=== PATIENT | male | born 1990 | race Caucasian/White ===

== ENCOUNTER 2017-08-30 19:08 | Emergency (ER) | payer OTHER ==
[~2017-08-30] VITALS: Ht 170.2 cm; Wt 97.5 kg
[2017-08-30 19:23] VITALS: BP_SYST 159
[2017-08-30] MEDS ORDERED: LIDOCAINE 1% 10 MG/ML, 20 ML MDV INJ ONE (20:00)
[2017-08-30] MEDS ORDERED: BACITRACIN 1 GM OINT TP ONE (20:00)
[2017-08-30] MEDS ORDERED: DIPH-TET-PERTUS Vaccine 0.5 ML VIAL (ADACEL) I.M. ONE (20:00)
[2017-08-30 20:56] VITALS: BP_SYST 155
== END 2017-08-30 20:56 | disposition home or self-care (01) ==
LOC: SED 19:08
DX: S61.412A Laceration without foreign body of left hand, initial encounter (principal); Z88.0 Allergy status to penicillin; W45.0XXA Nail entering through skin, initial encounter; Y93.89 Activity, other specified; Y92.89 Other specified places as the place of occurrence of the external cause; Y99.8 Other external cause status
CPT/HCPCS: 90715; 99283

== ENCOUNTER 2023-03-03 16:06 | Emergency (ER) | payer OTHER ==
[~2023-03-03] VITALS: Ht 170.2 cm; Wt 115.7 kg
[2023-03-03 16:13] VITALS: BP_SYST 142; PULSE 87; RESP 18; TEMP 98.3; O2SAT 97
[2023-03-03] MEDS ORDERED: KETOROLAC TROMETHAMINE 60 MG/2 ML VIAL IM ONE (18:15)
[2023-03-03] MEDS ORDERED: DICL75TA5 PO (20:15)
[2023-03-03] MEDS ORDERED: DICL20GE TP (20:15)
[2023-03-03 20:20] VITALS: BP_SYST 143; PULSE 80; RESP 19; TEMP 98; O2SAT 97
== END 2023-03-03 20:19 | disposition home or self-care (01) ==
LOC: SED 16:06
DX: S16.1XXA Strain of muscle, fascia and tendon at neck level, initial encounter (principal); S60.212A Contusion of left wrist, initial encounter; Z88.0 Allergy status to penicillin; Z79.899 Other long term (current) drug therapy; V49.40XA Driver injured in collision with unspecified motor vehicles in traffic accident, initial encounter; Y93.89 Activity, other specified; Y92.89 Other specified places as the place of occurrence of the external cause; Y99.8 Other external cause status
CPT/HCPCS: 99284; 72040; 72170; 73110; J1885